=== PATIENT | male | born 1990 ===

== ENCOUNTER 2018-12-28 05:40 | Day surgery (SDC) | payer OTHER ==
--- NOTE | 2018-11-16 07:21 | Operative Note - PDOC ---
Operative Note Operative Note Pre-op Diagnosis: right knee internal derangment Procedure: see op report Post-op Diagnosis: same as pre-op plus Operative Findings: consistent w/pre-op dx studies Anesthesia: MAC Specimen: none Complications: none Condition: stable Estimated Blood Loss: none Implant(s) used?: No Mikel Padilla MD Nov 16, 2018 07:21
--- NOTE | 2018-11-16 07:21 | Pre-Procedure Note/Attestation ---
Pre-Procedure Note/Attestation Complete Prior to Procedure Planned Procedure: right Procedure Narrative: knee arthroscopy, removal loose bodies, possible menisectomy Indications for Procedure Pre-Operative Diagnosis: right knee internal derangment Attestation I attest that I discussed the nature of the procedure; its benefits; risks and complications; and alternatives (and the risks and benefits of such alternatives ), prior to the procedure, with the patient (or the patient's legal medical office representative). I attest that, if there was a reasonable possibility of needing a blood transfusion, the patient (or the patient's legal medical office representative) was given the [facility] standardized written summary, pursuant to the [place] Blood Safety Act ([place] Health and Safety Code # 1645, as amended). I attest that I re-evaluated the patient just prior to the surgery and that there has been no change in the patient's H&P, except as documented below: Mikel Padilla MD Nov 16, 2018 07:21
[~2018-12-28] VITALS: Ht 188 cm; Wt 82.6 kg
[2018-12-28] VITALS (13 sets, daily range): BP systolic 119–138; BP diastolic 66–90
[~2018-12-28 05:40] MED LIST: D5 1/2NS 1,000 ML IV SCH; HYDROcodone/Acetamin 5/325 tab ORAL PRN; HYDROmorphone 1mg/ml Carpuject SUBQ PRN; Tylenol #3 tab (300mg/30mg) ORAL PRN; ceFAZolin 1gm IVPB IVPB ONE; celeBREX 200mg Cap **SURGERY PATIENTS ONLY ORAL ONE; oxyCONTIN 20mg tab ORAL ONE
[2018-12-28] MEDS ORDERED: oxyCONTIN 20mg tab ORAL ONE (06:00)
[2018-12-28] MEDS ORDERED: ceFAZolin 1gm IVPB IVPB ONE ×2 (06:00)
[2018-12-28] MEDS ORDERED: celeBREX 200mg Cap **SURGERY PATIENTS ONLY ORAL ONE (06:00)
[2018-12-28] MEDS ORDERED: NKM (06:19)
[2018-12-28] MEDS ORDERED: Duramorph PF 5mg/10ml amp ONE (07:06)
[2018-12-28] MEDS ORDERED: Bupivacaine 0.25% Inj 30ml INJ ONE (07:06)
[2018-12-28] MEDS ORDERED: Kenalog-40 1ml Vial ONE (07:06)
[2018-12-28] MEDS ORDERED: Ketorolac 30mg Inj ONE (07:06)
[2018-12-28] MEDS ORDERED: Lidocaine 1% 10mg/ml/Epi 0.005mg/ml 30ml vial INJ ONE (07:07)
[2018-12-28] MEDS ORDERED: fentaNYL 100 mcg/2 mL IV ONE (07:23)
[2018-12-28] MEDS ORDERED: Midazolam 2mg/2ml Inj ONE (07:24)
[2018-12-28] MEDS ORDERED: NS Irrig 4000ml IRRIG ONE (07:30)
[2018-12-28] MEDS ORDERED: LR 1000ml ONE (07:30)
[2018-12-28] MEDS ORDERED: Sterile Water Irrig 1000ml IRRIG ONE (07:30)
[2018-12-28] MEDS ORDERED: NS Irrig 1000ml ONE (07:30)
--- NOTE | 2018-12-28 07:35 | Pre-Procedure Note/Attestation ---
Pre-Procedure Note/Attestation Complete Prior to Procedure Planned Procedure: right Procedure Narrative: knee diagnostic arthroscopy, removal of intraarticular bodies Indications for Procedure Pre-Operative Diagnosis: right knee internal derangment Attestation I attest that I discussed the nature of the procedure; its benefits; risks and complications; and alternatives (and the risks and benefits of such alternatives ), prior to the procedure, with the patient (or the patient's legal b2b sales representative). I attest that, if there was a reasonable possibility of needing a blood transfusion, the patient (or the patient's legal b2b sales representative) was given the [facility] standardized written summary, pursuant to the [place] Blood Safety Act ([place] Health and Safety Code # 1645, as amended). I attest that I re-evaluated the patient just prior to the surgery and that there has been no change in the patient's H&P, except as documented below: Mikel Padilla MD Dec 28, 2018 07:35
--- NOTE | 2018-12-28 07:36 | Operative Note - PDOC ---
Operative Note Operative Note Pre-op Diagnosis: right knee internal derangment Procedure: see op report Post-op Diagnosis: same as pre-op Operative Findings: consistent w/pre-op dx studies Anesthesia: MAC Specimen: none Complications: none Condition: stable Estimated Blood Loss: none Implant(s) used?: No Mikel Padilla MD Dec 28, 2018 07:36
[2018-12-28] MEDS ORDERED: HYDROcodone/Acetamin 5/325 tab ORAL PRN (07:45)
[2018-12-28] MEDS ORDERED: Tylenol #3 tab (300mg/30mg) ORAL PRN (07:45)
[2018-12-28] MEDS ORDERED: D5 1/2NS 1,000 ML IV SCH (07:45)
[2018-12-28] MEDS ORDERED: HYDROmorphone 1mg/ml Carpuject SUBQ PRN (07:45)
[2018-12-28] MEDS ORDERED: Duramorph PF 5mg/10ml amp EPIDUR ONE (07:50)
[2018-12-28] MEDS ORDERED: Propofol 200mg/20ml IV ONE (07:51)
[2018-12-28] MEDS ORDERED: Metoclopramide 10mg/2ml Inj ONE (07:51)
[2018-12-28] MEDS ORDERED: Lidocaine 1% MPF 10mg/ml 5ml ONE (07:51)
--- NOTE | 2018-12-28 08:55 | Anethesia Preoperative Eval ---
Anesthesia Pre-op PMH/ROS General Date of Evaluation: Dec 28, 2018 Time of Evaluation: 07:35 Anesthesiologist: brian ASA Score: ASA 1 Mallampati Score Class I : Soft palate, uvula, fauces, pillars visible Class II: Soft palate, uvula, fauces visible Class III: Soft palate, base of uvula visible Class IV: Only hard plate visible Mallampati Classification: Class I Surgeon: conner Diagnosis: knee pain Surgical Procedure: right knee arthroscopy Anesthesia History: none Family History: no anesthesia problems Allergies: Coded Allergies: No Known Allergies (Unverified , 11/15/18) Patient NPO?: Yes NPO Date: Dec 28, 2018 NPO Time: 00:01 Past Medical History Cardiovascular: Denies: HTN, CAD, NM, valve dz, arrhythmia, other Pulmonary: Denies: asthma, COPD, SUMEET, other Gastrointestinal/Genitourinary: Denies: GERD, CRI, ESRD, other Neurologic/Psychiatric: Denies: dementia, CVA, depression/anxiety, TIA, other Endocrine: Denies: DM, hypothyroidism, steroids, other HEENT: Denies: cataract (L), cataract (R), glaucoma, [place] (L), [place] (R), other Hematology/Immune: Denies: anemia, DVT, bleeding disorder, other Musculoskeletal/Integumentary: Reports: OA; Denies: RA, DJD, DDD, edema, other PSxH Narrative: right knee surgery - no complication Anesthesia Pre-op Phys. Exam Physician Exam Last Vital Signs Date Time Temp Pulse Resp B/P (MAP) Pulse Ox O2 Delivery O2 Flow Rate FiO2 12/28/18 08:50 66 11 122/66 100 Simple Mask 6 12/28/18 08:39 98.7 Constitutional: NAD Neurologic: CN 2-12 intact Cardiovascular: RRR Respiratory: CTA Gastrointestinal: S/NT/ND Airway Exam Mallampati Classification 1 Mallampati Score: Class II MO: full Neck: normal TMD: 3fb ROM: full Dentures: no upper, no lower Anesthesia Pre-op A/P Studies Pre-op Studies: EKG - sr Risk Assessment & Plan Assessment: healthy 28 yo male Plan: General Status Change Before Surgery: No Pre-Antibiotics Drug: ancef Given Within 1 Hr of Incision: Yes Time Given: 07:45 Anne Randall CRNA Dec 28, 2018 08:55
--- NOTE | 2018-12-28 08:56 | Immediate Post-Op Evaluation ---
Immediate Post-Op Evalulation Immediate Post-Op Evalulation Procedure: right knee scope Date of Evaluation: Dec 28, 2018 Time of Evaluation: 08:45 IV Fluids: 500 Blood Products: 0 Blood Pressure Systolic: 132 Blood Pressure Diastolic: 79 Pulse Rate: 72 Respiratory Rate: 14 O2 Sat by Pulse Oximetry: 100 Temperature (Fahrenheit): 98.7 Nausea: No Vomiting: No Patient Status: awake, reacts, patent Hydration Status: adequate Drug: ancef Given Within 1 Hr of Incision: Yes Time Given: 07:45 Anne Randall CRNA Dec 28, 2018 08:56
[2018-12-28] MEDS ORDERED: fentaNYL 100 mcg/2 mL IV PRN (09:00)
--- NOTE | 2018-12-28 14:46 | 48 Hour Post Anesthesia Eval ---
Post Anesthesia Evaluation Procedure: right knee scope Date of Evaluation: Dec 28, 2018 Time of Evaluation: 14:46 Blood Pressure Systolic: 135 0: 79 Pulse Rate: 65 Respiratory Rate: 14 O2 Sat by Pulse Oximetry: 98 Airway: patent Nausea: No Vomiting: No Hydration Status: adequate Cardiopulmonary Status: stable Mental Status/LOC: patient returned to baseline Follow-up Care/Observations: na Post-Anesthesia Complications: none Follow-up care needed: N/A Anne Randall [facility] Dec 28, 2018 14:46
--- NOTE | 2018-12-28 16:15 | Operative Note - Dictated ---
DATE OF OPERATION: 12/28/2018 PREOPERATIVE DIAGNOSES: 1. Right knee intraarticular loose body. 2. 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 3. Status post ACL reconstruction and recurrent tear of the ACL graft. 4. Medial and lateral meniscus tears. POSTOPERATIVE DIAGNOSES: 1. Right knee intraarticular loose bodies. 2. Hypertrophic synovial tissue medial and lateral patellofemoral compartment. 3. Lateral femoral condyle chondral damage. 4. Previous medial and lateral meniscectomy. INDICATION FOR PROCEDURE: The patient is a pleasant gentleman, who has right knee pain. He had previous ACL reconstruction, medial and lateral meniscectomy outstanding function in terms of his right knee. Subsequent to an accident, he had significant loss of his motion. MRI showed some intraarticular loose bodies. The previous ACL graft was attenuated and there was concerns about whether he had a recurrent medial and lateral meniscus tear. After failed conservative treatment, he elected to undergo right knee arthroscopy, possible meniscectomy, synovectomy, chondroplasty. Risks, limitations, expectations, complication of the procedure were discussed in detail. All questions addressed. DESCRIPTION OF PROCEDURE: After informed consent was obtained, the patient was brought to the operating room. The patient was placed under general anesthesia. The right leg was prepped and draped in sterile manner. Time-out was performed. An inferolateral stab incision was then made. Trocar introduced into the knee joint. There was hypertrophic synovial tissue and fat pad in the patellofemoral compartment making visualization somewhat difficult. Medial compartment was entered. There was attenuation of the meniscus. There was hypertrophic synovial tissue and fat pad. Medial working portal was established. Excision of the fat pad and synovectomy was performed to better visualize the medial compartment. Medial compartment was entered. Meniscus was smaller size than normal but no obvious gross tear. Intercondylar notch was entered. There was two large intraarticular loose bodies in the intercondylar notch. Large body was then mobilized and removed. The previous ACL graft was pretty attenuated. Femoral notch was pretty stenotic. Lateral compartment was entered. There was evidence of lateral meniscectomy. There was some chondral damage in the posterior medial femoral condyle. Gentle chondroplasty was performed. The camera was then placed in patellofemoral compartment. Excision of the fat pad and synovectomy was completed. Once that was done, the instruments were removed. Examination under anesthesia was performed. Prior to the surgery, the knee with gravity bent to 90. After the procedure, it went to 120. At this point, the instruments were removed. Portal sites were closed with 3-0 Monocryl sutures. Compression dressing was applied. The patient was awoken and taken to recovery room with stable vital signs. ESTIMATED BLOOD LOSS: None. COMPLICATIONS: None. SPECIMENS: None. IMPLANTS: None. Mikel Padilla M.D. DR: Marybel JOB#: [id number] CC:
== END 2018-12-28 11:15 | disposition home or self-care (01) ==
LOC: SUR 05:40
DX: M23.41 Loose body in knee, right knee (principal); M17.11 Unilateral primary osteoarthritis, right knee; M67.261 Synovial hypertrophy, not elsewhere classified, right lower leg
CPT/HCPCS: 29876; J0690; J1885; J2250; J2405; J2704; J2765; J3010; J3301; J3490; 94003; 94150